=== PATIENT | female | born 1995 | race Caucasian/White ===

== ENCOUNTER 2021-04-22 13:44 | Emergency (ER) | payer MEDICAID ==
[~2021-04-22] VITALS: Ht 165.1 cm; Wt 146.0 kg
[2021-04-22 15:47] LABS: BASOPHILS % 0.9 % (0.0-2.0); EOSINOPHILS % 0.6 % (0.0-5.0); HEMATOCRIT. 38.2 % (36.0-48.0); HEMOGLOBIN. 12.7 g/dL (12.0-16.0); LYMPHOCYTES % 25.4 % (20.0-50.0); MEAN CORPUSCULAR HEMOGLOBIN 27.4 pg (28.0-32.0); MEAN CORPUSCULAR VOLUME 82.5 fL (81.0-99.0); MEAN PLATELET VOLUME 8.7 fl (7.4-10.4); MONOCYTES % 5.2 % (2.0-8.0); NEUTROPHILS % 67.9 % (40.0-76.0); PLATELET 318 x1000/uL (130-400); RED BLOOD CELL COUNT 4.62 mill/uL (4.2-5.4); RED CELL DISTRIBUTION WIDTH 13.8 % (11.6-14.6)
[2021-04-22 15:52] LABS: CHLORIDE 109 mEq/L (98-107)
[2021-04-22 15:55] LABS: HCG SCREEN NEGATIVE
[2021-04-22 16:48] VITALS: BP 129/84
[2021-04-22] MEDS ORDERED: ONDA4TAB5 MT (16:59)
== END 2021-04-22 17:12 | disposition home or self-care (01) ==
LOC: ER 13:44 → EDBD 13:44 → ER 17:12
DX: R10.10 Upper abdominal pain, unspecified (principal); K92.0 Hematemesis; E66.01 Morbid (severe) obesity due to excess calories; Z68.43 Body mass index [BMI] 50.0-59.9, adult; J45.909 Unspecified asthma, uncomplicated
CPT/HCPCS: 36415; 80048; 80076; 83690; 84703; 85025; 99283; Z7610